=== PATIENT | male | born 1945 | race Caucasian/White ===

== ENCOUNTER → 2017-11-15 | Outpatient (CLI) | payer OTHER, BC ==
[~2017-11-15] MED LIST: ASPI325T45 PO; MELO7.5T5 PO
[2017-11-15 13:01] LABS: HEMOGLOBIN A1C 5.9 % (4.5-5.6)
[2017-11-15 13:34] LABS: ALBUMIN 3.8 gm/dl (3.4-5.0); ALT/SGPT 53 U/L (12-78); BLOOD UREA NITROGEN 17 mg/dl (7-18); CALCIUM 8.9 mg/dl (8.5-10.1); CARBON DIOXIDE 26 mmol/L (21-32); CHOLESTEROL 203 mg/dl (0-200); CREATININE 0.91 mg/dl (0.60-1.40); GLUCOSE 114 mg/dl (70-99); SODIUM 140 mmol/L (136-145)
[2017-11-15 13:45] LABS: ALKALINE PHOSPHATASE 68 U/L (45-117); AST/SGOT 46 U/L (15-37); LDL CHOLESTEROL CALCULATED 122 mg/dl; TOTAL PROTEIN 7.8 gm/dl (6.4-8.2)
== END | disposition home or self-care (01) ==
LOC: C.LABMFLN 07:16
PROVIDERS: ATTEND Family Medicine
DX: Z12.5 Encounter for screening for malignant neoplasm of prostate (principal); Z86.39 Personal history of other endocrine, nutritional and metabolic disease; R73.01 Impaired fasting glucose

== ENCOUNTER → 2018-01-11 | Outpatient (CLI) | payer OTHER, BC ==
[~2018-01-11] MED LIST changes: +ASPECOTC PO; -ASPI325T45 PO
== END | disposition home or self-care (01) ==
LOC: C.LABMFLN 11:47
PROVIDERS: ATTEND Urology
DX: R97.20 Elevated prostate specific antigen [PSA] (principal)

== ENCOUNTER → 2018-02-08 | Outpatient (CLI) | payer OTHER, BC ==
[2018-02-08 12:39] LABS: BLOOD UREA NITROGEN 20 mg/dl (7-18); CREATININE 0.95 mg/dl (0.60-1.40)
== END | disposition home or self-care (01) ==
LOC: C.LABMFLN 08:03
PROVIDERS: ATTEND Urology
DX: R97.20 Elevated prostate specific antigen [PSA] (principal)

== ENCOUNTER → 2018-02-16 | Outpatient (CLI) | payer OTHER, BC ==
[~2018-02-16] MED LIST changes: +GADAVIST IV PRN
--- NOTE | 2018-02-16 08:53 | DIAGNOSTIC IMAGING REPORT ---
PROSTATE MRI COMBO CLINICAL HISTORY: 72 years-old Male presenting with Elevated prostate specific antigen PSA 7.4 ng/mL. TECHNIQUE: Multisequence, multiplanar MR imaging of the prostate was performed before and after the administration of intravenous contrast. Additional postprocessing was performed on a separate Otonomy workstation by the radiologist for 3-D volumetric segmentation of the prostate and contouring of region(s) of interest (SAMIA) for targeting. IV contrast: 12 cc intravenous Gadavist COMPARISON: None. FINDINGS: Prostate: The prostate measures 7.4 x 6.0 x 7.1 cm (DynaCAD prostate boundary segmentation volume 158 mL). Moderate changes of benign prostatic hyperplasia. Precontrast T1 weighted imaging demonstrates no evidence of intrinsic T1 hyperintensity to suggest hemorrhage. No clinically suspicious prostate masses are visualized. PI-RADS: 2. Clinically significant cancer is unlikely to be present. Seminal vesicles normal. Bladder: There is bladder wall thickening likely secondary to bladder outlet obstruction Bowel: Visualized portion of the rectum normal. Peritoneum: No free fluid in the pelvis. Lymph nodes: No lymphadenopathy in the visualized portion of the pelvis. Vasculature: Iliac vessels patent. Abdominal wall: There is a fat-containing left inguinal hernia Osseous structures: Normal bone marrow signal intensity. IMPRESSION: 1. PI-RADS: 2. Clinically significant cancer is unlikely to be present. Electronically signed by: Antonio Ge M.D. 02/16/2018 8:52 AM Dictated Date/Time: 02/16/2018 8:31 AM
== END | disposition home or self-care (01) ==
LOC: C.MRIBC 06:40
PROVIDERS: ATTEND Urology
DX: R97.20 Elevated prostate specific antigen [PSA] (principal)

== ENCOUNTER → 2018-04-20 | Outpatient (CLI) | payer OTHER, BC ==
[~2018-04-20] MED LIST changes: -GADAVIST IV PRN
== END | disposition home or self-care (01) ==
LOC: C.PATHSPEC 17:54
PROVIDERS: ATTEND Urology
DX: R97.20 Elevated prostate specific antigen [PSA] (principal)